=== PATIENT | female | born 1935 | race Caucasian/White ===

== ENCOUNTER → 2016-09-04 | Outpatient (REF) | payer MEDICARE, BC, OTHER ==
[~2016-09-04] MED LIST: ASPI81CH PO; ASPI81TA7 PO; ATEN50TA2 PO; Blood pressure med; CLAR10CA3 PO; FLUT22IN INH; FLUTISP; GLUC250C5 PO; GUMMCHW PO; LEVO500T PO; MVI; SYMB16INH INH
[2016-09-04 11:13] LABS: MEAN CORPUSCULAR HEMOGLOBIN 30.7 pg (27.0-33.0); MEAN CORPUSCULAR HGB CONC 32.7 g/dl (32.0-36.5); MEAN CORPUSCULAR VOLUME 93.9 fl (80.0-96.0); RED CELL DISTRIBUTION WIDTH 13.1 % (11.5-14.5)
[2016-09-04 11:46] LABS: CREATININE FOR GFR 1.08 MG/DL (0.55-1.02); POTASSIUM SERUM 3.7 MEQ/L (3.5-5.1)
== END | disposition home or self-care (01) ==
PROVIDERS: ATTEND Internal Medicine
DX: I10 Essential (primary) hypertension (principal)

== ENCOUNTER → 2016-09-07 | Outpatient (REF) | payer MEDICARE | END | disposition home or self-care (01) | PROVIDERS: ATTEND Internal Medicine | DX: R06.02 Shortness of breath (principal); R06.2 Wheezing ==

== ENCOUNTER → 2016-09-10 | Outpatient (REF) | payer MEDICARE ==
[2016-09-10 10:12] LABS: MEAN CORPUSCULAR HEMOGLOBIN 30.9 pg (27.0-33.0); MEAN CORPUSCULAR HGB CONC 32.7 g/dl (32.0-36.5); MEAN CORPUSCULAR VOLUME 94.8 fl (80.0-96.0); WHITE BLOOD COUNT 7.1 K/mm3 (4.0-10.0)
== END | disposition home or self-care (01) ==
PROVIDERS: ATTEND Internal Medicine
DX: I10 Essential (primary) hypertension (principal); J40 Bronchitis, not specified as acute or chronic

== ENCOUNTER → 2016-10-02 | Outpatient (REF) | payer MEDICARE ==
[2016-10-02 10:59] LABS: MEAN CORPUSCULAR HEMOGLOBIN 30.2 pg (27.0-33.0); MEAN CORPUSCULAR HGB CONC 32.1 g/dl (32.0-36.5); MEAN CORPUSCULAR VOLUME 94.2 fl (80.0-96.0); RED CELL DISTRIBUTION WIDTH 13.2 % (11.5-14.5); WHITE BLOOD COUNT 6.8 K/mm3 (4.0-10.0)
[2016-10-02 11:18] LABS: CALCIUM LEVEL 8.6 MG/DL (8.8-10.2); CREATININE FOR GFR 1.04 MG/DL (0.55-1.02); GLOMERULAR FILTRATION RATE 54.3 (>32); POTASSIUM SERUM 4.1 MEQ/L (3.5-5.1)
== END | disposition home or self-care (01) ==
PROVIDERS: ATTEND Internal Medicine
DX: I10 Essential (primary) hypertension (principal)

== ENCOUNTER → 2016-11-05 | Outpatient (REF) | payer MEDICARE ==
--- NOTE | 2016-11-05 16:23 | REP ---
Portable chest x-ray single view: History: COPD, cough, short of breath. Comparison chest x-rays from 12/28/2012. Findings: There is a densely calcified benign stable granuloma in the right lung base. There is mild linear opacity along the left heart border on today's exam which may be atelectasis or fibrosis. No pleural effusion is seen. Mild cardiomegaly is observed as before. There is a dextroconvex curve in the lower thoracic spine unchanged. Pulmonary vasculature is not increased. Impression: Mild plate-like atelectasis versus linear fibrosis left base. Old granulomatous calcification right base. No active disease. Signed by Arsenio Evans MD 11/05/2016 05:08 P
== END ==
PROVIDERS: ATTEND Internal Medicine
DX: R05 Cough (principal); J44.9 Chronic obstructive pulmonary disease, unspecified; R06.02 Shortness of breath; J98.11 Atelectasis; R91.8 Other nonspecific abnormal finding of lung field

== ENCOUNTER → 2016-11-06 | Outpatient (REF) | payer MEDICARE ==
[2016-11-06 10:51] LABS: MEAN CORPUSCULAR HEMOGLOBIN 29.7 pg (27.0-33.0); MEAN CORPUSCULAR HGB CONC 31.7 g/dl (32.0-36.5); MEAN CORPUSCULAR VOLUME 93.7 fl (80.0-96.0); RED CELL DISTRIBUTION WIDTH 13.3 % (11.5-14.5)
[2016-11-06 11:26] LABS: CALCIUM LEVEL 8.3 MG/DL (8.8-10.2); CREATININE FOR GFR 1.11 MG/DL (0.55-1.02); GLOMERULAR FILTRATION RATE 50.3 (>32); POTASSIUM SERUM 3.6 MEQ/L (3.5-5.1)
== END ==
PROVIDERS: ATTEND Internal Medicine
DX: I10 Essential (primary) hypertension (principal)

== ENCOUNTER → 2016-12-06 | Outpatient (REF) | payer MEDICARE ==
[2016-12-06 11:04] LABS: MEAN CORPUSCULAR HEMOGLOBIN 30.2 pg (27.0-33.0); MEAN CORPUSCULAR HGB CONC 31.9 g/dl (32.0-36.5); MEAN CORPUSCULAR VOLUME 94.7 fl (80.0-96.0); RED CELL DISTRIBUTION WIDTH 13.9 % (11.5-14.5); WHITE BLOOD COUNT 6.8 K/mm3 (4.0-10.0)
[2016-12-06 11:17] LABS: ANION GAP 7 MEQ/L (8-16); BLOOD UREA NITROGEN 15 MG/DL (7-18); CALCIUM LEVEL 8.5 MG/DL (8.8-10.2); CARBON DIOXIDE LEVEL 28 MEQ/L (21-32); CHLORIDE LEVEL 108 MEQ/L (98-107); CREATININE FOR GFR 0.88 MG/DL (0.55-1.02); GLOMERULAR FILTRATION RATE > 60.0 (>32); GLUCOSE, FASTING 150 MG/DL (83-110); POTASSIUM SERUM 4.5 MEQ/L (3.5-5.1); SODIUM LEVEL 143 MEQ/L (136-145)
--- NOTE | 2016-12-06 13:44 | REP ---
CHEST: Single AP view of the chest is performed and compared to a prior study of 11/05/2016. There is mild bibasilar interstitial fibrosis, which is stable. Calcified granuloma in the right base is again noted. There is mild cardiomegaly. There is calcification and tortuosity of the thoracic aorta. The mediastinal silhouette is unchanged. IMPRESSION: Stable chronic findings. No acute infiltrate. Signed by Rob Mehta MD 12/06/2016 05:38 P
== END ==
PROVIDERS: ATTEND Internal Medicine
DX: J44.9 Chronic obstructive pulmonary disease, unspecified (principal); I10 Essential (primary) hypertension; R06.02 Shortness of breath

== ENCOUNTER → 2016-12-12 | Outpatient (REF) | payer MEDICARE | PROVIDERS: ATTEND Internal Medicine | DX: Z53.8 Procedure and treatment not carried out for other reasons (principal) ==

== ENCOUNTER → 2017-01-01 | Outpatient (REF) | payer MEDICARE ==
[2017-01-01 10:09] LABS: MEAN CORPUSCULAR HEMOGLOBIN 31.2 pg (27.0-33.0); MEAN CORPUSCULAR HGB CONC 32.8 g/dl (32.0-36.5); MEAN CORPUSCULAR VOLUME 95.1 fl (80.0-96.0); RED CELL DISTRIBUTION WIDTH 14.1 % (11.5-14.5); WHITE BLOOD COUNT 6.5 K/mm3 (4.0-10.0)
[2017-01-01 10:17] LABS: CALCIUM LEVEL 7.6 MG/DL (8.8-10.2); CREATININE FOR GFR 0.99 MG/DL (0.55-1.02); GLOMERULAR FILTRATION RATE 57.5 (>32); POTASSIUM SERUM 3.9 MEQ/L (3.5-5.1)
== END ==
PROVIDERS: ATTEND Internal Medicine
DX: I10 Essential (primary) hypertension (principal)

== ENCOUNTER → 2017-01-13 | Outpatient (REF) ==
[2017-01-13 10:40] LABS: CALCIUM LEVEL 8.2 MG/DL (8.8-10.2); CREATININE FOR GFR 1.02 MG/DL (0.55-1.02); GLOMERULAR FILTRATION RATE 55.5 (>32); POTASSIUM SERUM 3.8 MEQ/L (3.5-5.1)
== END ==
PROVIDERS: ATTEND Internal Medicine
DX: N18.9 Chronic kidney disease, unspecified (principal)

== ENCOUNTER → 2017-01-28 | Outpatient (REF) | payer MEDICARE ==
[2017-01-28 13:53] LABS: MEAN CORPUSCULAR HEMOGLOBIN 30.5 pg (27.0-33.0); MEAN CORPUSCULAR VOLUME 95.3 fl (80.0-96.0); RED CELL DISTRIBUTION WIDTH 14.3 % (11.5-14.5); WHITE BLOOD COUNT 7.3 K/mm3 (4.0-10.0)
[2017-01-28 14:26] LABS: CALCIUM LEVEL 8.7 MG/DL (8.8-10.2); CREATININE FOR GFR 1.05 MG/DL (0.55-1.02); GLOMERULAR FILTRATION RATE 53.7 (>32)
--- NOTE | 2017-01-28 16:02 | REP ---
Chest one-view HISTORY: Shortness of breath Comparison: 12/06/2016 An increase in interstitial markings is present in the lower lobes consistent with chronic interstitial fibrosis. A calcified granuloma is present in the right lower lobe. The cardiac silhouette is enlarged. The pulmonary vasculature is normal in appearance. Impression: 1. Chronic interstitial fibrosis. 2. Old granulomatous disease. 3. Cardiomegaly. Signed by Earl Alfonso MD 01/28/2017 03:53 P
== END ==
PROVIDERS: ATTEND Internal Medicine
DX: J44.9 Chronic obstructive pulmonary disease, unspecified (principal); R06.02 Shortness of breath; I51.7 Cardiomegaly

== ENCOUNTER → 2017-02-05 | Outpatient (REF) | payer MEDICARE ==
[2017-02-05 10:39] LABS: MEAN CORPUSCULAR HEMOGLOBIN 29.9 pg (27.0-33.0); MEAN CORPUSCULAR HGB CONC 31.4 g/dl (32.0-36.5); MEAN CORPUSCULAR VOLUME 95.3 fl (80.0-96.0); WHITE BLOOD COUNT 11.4 K/mm3 (4.0-10.0)
[2017-02-05 10:50] LABS: CALCIUM LEVEL 8.5 MG/DL (8.8-10.2); CREATININE FOR GFR 1.25 MG/DL (0.55-1.02); GLOMERULAR FILTRATION RATE 43.9 (>32); POTASSIUM SERUM 4.4 MEQ/L (3.5-5.1)
== END ==
PROVIDERS: ATTEND Internal Medicine
DX: I10 Essential (primary) hypertension (principal)

== ENCOUNTER → 2017-05-06 | Outpatient (REF) | payer MEDICARE ==
[2017-05-06 11:23] LABS: MEAN CORPUSCULAR HEMOGLOBIN 29.3 pg (27.0-33.0); MEAN CORPUSCULAR HGB CONC 31.8 g/dl (32.0-36.5); MEAN CORPUSCULAR VOLUME 92.2 fl (80.0-96.0); RED CELL DISTRIBUTION WIDTH 14.1 % (11.5-14.5); WHITE BLOOD COUNT 8.6 K/mm3 (4.0-10.0)
[2017-05-06 11:57] LABS: CREATININE FOR GFR 1.08 MG/DL (0.55-1.02); POTASSIUM SERUM 3.7 MEQ/L (3.5-5.1)
== END ==
PROVIDERS: ATTEND Internal Medicine
DX: I10 Essential (primary) hypertension (principal)

== ENCOUNTER → 2017-06-12 | Outpatient (REF) | payer MEDICARE ==
--- NOTE | 2017-06-12 14:05 | REP ---
RIGHT FOREARM: Two views. History: Pain in the forearm and decreased range of motion. FINDINGS: Two views right forearm demonstrate mild diffuse osteopenia. No fracture is seen. No bony erosive or destructive lesion is observed. IMPRESSION: :Diffuse osteopenia. Otherwise negative right forearm radiographs. Signed by Arsenio Evans MD 06/12/2017 05:11 P
[2017-06-12 15:04] LABS: MEAN CORPUSCULAR HEMOGLOBIN 29.3 pg (27.0-33.0); MEAN CORPUSCULAR HGB CONC 31.3 g/dl (32.0-36.5); MEAN CORPUSCULAR VOLUME 93.4 fl (80.0-96.0); WHITE BLOOD COUNT 10.7 10^3/uL (4.0-10.0)
[2017-06-12 15:35] LABS: ANION GAP 8 MEQ/L (8-16); BLOOD UREA NITROGEN 17 MG/DL (7-18); CALCIUM LEVEL 8.8 MG/DL (8.8-10.2); CARBON DIOXIDE LEVEL 31 MEQ/L (21-32); CHLORIDE LEVEL 104 MEQ/L (98-107); CREATININE FOR GFR 0.91 MG/DL (0.55-1.02); GLOMERULAR FILTRATION RATE > 60.0 (>32); GLUCOSE, FASTING 103 MG/DL (83-110); POTASSIUM SERUM 4.3 MEQ/L (3.5-5.1); SODIUM LEVEL 143 MEQ/L (136-145); URIC ACID 5.1 MG/DL (2.6-6.0)
== END ==
PROVIDERS: ATTEND Internal Medicine
DX: M85.80 Other specified disorders of bone density and structure, unspecified site (principal)

== ENCOUNTER → 2017-06-13 | Outpatient (REF) | payer MEDICARE ==
[2017-06-13 09:33] LABS: MEAN CORPUSCULAR HEMOGLOBIN 28.9 pg (27.0-33.0); MEAN CORPUSCULAR HGB CONC 31.2 g/dl (32.0-36.5); MEAN CORPUSCULAR VOLUME 92.8 fl (80.0-96.0); RED CELL DISTRIBUTION WIDTH 14.8 % (11.5-14.5); WHITE BLOOD COUNT 11.5 10^3/uL (4.0-10.0)
== END ==
PROVIDERS: ATTEND Internal Medicine
DX: M79.601 Pain in right arm (principal)

== ENCOUNTER → 2017-08-06 | Outpatient (REF) | payer MEDICARE ==
[2017-08-06 10:29] LABS: MEAN CORPUSCULAR HEMOGLOBIN 29.6 pg (27.0-33.0); MEAN CORPUSCULAR HGB CONC 31.5 g/dl (32.0-36.5); MEAN CORPUSCULAR VOLUME 94.1 fl (80.0-96.0); PLATELET COUNT, AUTOMATED 415 10^3/uL (150-450); RED CELL DISTRIBUTION WIDTH 14.6 % (11.5-14.5); WHITE BLOOD COUNT 6.3 10^3/uL (4.0-10.0)
[2017-08-06 10:45] LABS: CALCIUM LEVEL 8.8 MG/DL (8.8-10.2); CREATININE FOR GFR 0.99 MG/DL (0.55-1.02); GLOMERULAR FILTRATION RATE 57.3 (>32); POTASSIUM SERUM 4.2 MEQ/L (3.5-5.1)
== END ==
PROVIDERS: ATTEND Internal Medicine
DX: I10 Essential (primary) hypertension (principal)

== ENCOUNTER → 2017-08-06 | Outpatient (REF) | payer MEDICARE ==
--- NOTE | 2017-08-06 16:14 | REP ---
Chest one-view HISTORY: Wheezing Comparison: 01/01/2017 An increase in interstitial markings is present in the lungs consistent with chronic interstitial fibrosis. Calcified granuloma is present in the right lower lobe. The cardiac silhouette is enlarged. The pulmonary vasculature is normal in appearance. Impression: 1. Chronic interstitial fibrosis. 2. Over granulomatous disease. 3. Cardiomegaly. Signed by Earl Alfonso MD 08/06/2017 04:06 P
== END ==
PROVIDERS: ATTEND Internal Medicine
DX: J84.10 Pulmonary fibrosis, unspecified (principal); I11.9 Hypertensive heart disease without heart failure

== ENCOUNTER → 2017-08-08 | Outpatient (REF) | payer MEDICARE ==
[2017-08-08 11:53] LABS: MEAN CORPUSCULAR HEMOGLOBIN 29.8 pg (27.0-33.0); MEAN CORPUSCULAR HGB CONC 31.8 g/dl (32.0-36.5); MEAN CORPUSCULAR VOLUME 93.7 fl (80.0-96.0); PLATELET COUNT, AUTOMATED 404 10^3/uL (150-450); RED CELL DISTRIBUTION WIDTH 14.6 % (11.5-14.5); WHITE BLOOD COUNT 7.4 10^3/uL (4.0-10.0)
[2017-08-08 12:39] LABS: CALCIUM LEVEL 8.7 MG/DL (8.8-10.2); CREATININE FOR GFR 1.02 MG/DL (0.55-1.02); GLOMERULAR FILTRATION RATE 55.4 (>32); POTASSIUM SERUM 3.9 MEQ/L (3.5-5.1)
== END ==
PROVIDERS: ATTEND Internal Medicine
DX: R60.9 Edema, unspecified (principal)